=== PATIENT | male | born 1990 | race Caucasian/White ===

== ENCOUNTER 2016-12-27 19:18 | Emergency (ER) | payer BC ==
[2016-12-27] MEDS ORDERED: Tetan/Diph/Pertus SYR(Tdap)* 0.5 ML SYR(BOOSTRIX) use SYR IM ONE (20:01)
[2016-12-27] MEDS ORDERED: Amoxicillin/Clavulanate TAB* 875 MG PO ONE (20:01)
--- NOTE | 2016-12-27 20:01 | ED ---
Laceration/Wound HPI - HPI Summary HPI Summary: 26M presents with laceration of right sole of foot 30 minutes ago. He was walking bare foot across yard and cut it on something. He denies any foreign body. He was able to ambulate on it. He denies any numbness or tingling. He does not know when his last tetanus was. - History of Current Complaint Stated Complaint: FOOT LAC Time Seen by Provider: 12/27/16 19:30 Pain Intensity: 2 - Allergy/Home Medications Allergies/Adverse Reactions: Allergies Allergy/AdvReac Type Severity Reaction Status Date / Time No Known Allergies Allergy Verified 12/27/16 19:22 PMH/Surg Hx/FS Hx/Imm Hx Endocrine/Hematology History: Denies: Hx Anticoagulant Therapy Cardiovascular History: Denies: Hx Hypertension - Immunization History Date of Tetanus Vaccine: 2008 Infectious Disease History: No Infectious Disease History: Denies: Traveled Outside the in Last 30 Days - Family History Known Family History: Positive: Hypertension - Social History Alcohol Use: Occasionally Substance Use Type: Reports: None Smoking Status (MU): Never Smoked Tobacco Review of Systems Negative: Fever Negative: Chest Pain Negative: Shortness Of Breath Positive: Other - laceration right foot All Other Systems Reviewed And Are Negative: Yes Physical Exam Triage Information Reviewed: Yes Vital Signs On Initial Exam: Initial Vitals Temp Pulse Resp BP Pulse Ox 98.3 F 58 16 148/66 100 12/27/16 19:21 12/27/16 19:21 12/27/16 19:21 12/27/16 19:21 12/27/16 19:21 Vital Signs Reviewed: Yes Appearance: Positive: Well-Appearing Skin: Positive: Warm, Dry, Other - 2cm superficial on arch of right foot Head/Face: Positive: Normal Head/Face Inspection Eyes: Positive: Normal, Conjunctiva Clear Respiratory/Lung Sounds: Positive: Clear to Auscultation, Breath Sounds Present Cardiovascular: Positive: Normal, RRR Musculoskeletal: Positive: Strength/ROM Intact - right foot, Other - good pulses , capillary refill<2 secs, Procedures - Laceration/Wound Repair 2 Location: Other - right sole of foot Description: Linear Length, Depth and Shape: 2cm superficial Irrigated w/ Saline (ccs): 500 Closure: Skin Adhesive, SteriStrips Diagnostics - Vital Signs Vital Signs Temp Pulse Resp BP Pulse Ox 12/27/16 19:21 98.3 F 58 16 148/66 100 - Laboratory Lab Statement: Any lab studies that have been ordered have been reviewed, and results considered in the medical decision making process. Laceration Repair Course/Dx - Course Course Of Treatment: 26M presents with laceration of right sole of foot 30 minutes ago. He was walking bare foot across yard and cut it on something. He denies any foreign body. He was able to ambulate on it. He denies any numbness or tingling. He does not know when his last tetanus was. has 2cm laceration on arch of right foot that is superificial. discussed sutures vs glue and patient wants glue. placed glue and steristrips after extensive irrigation. even though did not go through shoe placed on augmentin to ppx for infection. gave tetanus. patient understands and agrees with plan. - Differential Dx Differental Diagnoses: Abrasion, Avulsion, Laceration - Clinical Impression Provider Diagnoses: Laceration of right foot Discharge - Discharge Plan Condition: Good Disposition: HOME Prescriptions: Amoxicillin/Clavulanate TAB* [Augmentin TAB 875*] 875 mg PO BID #9 tab Patient Education Materials: Skin [facility]hesive [facility] (ED) Referrals: Torres Olmstead DO [Primary Care Provider] - Additional Instructions: Take antibiotic twice a day for 5 days, first dose given in ED Place ice on area as needed Keep as dry as possible Take Tylenol or ibuprofen for pain as needed every 6 hours Glue and steristrips will fall off on own Use sunscreen on area after laceration has healed Return to ED if develop any signs of infection or any new or worsening symptoms
[2016-12-27 20:35] VITALS: BP 106/79
== END 2016-12-27 21:16 | disposition home or self-care (01) ==
LOC: ED 19:18
DX: S91.311A Laceration without foreign body, right foot, initial encounter (principal); Y28.9XXA Contact with unspecified sharp object, undetermined intent, initial encounter; Y92.096 Garden or yard of other non-institutional residence as the place of occurrence of the external cause
CPT/HCPCS: 90715; 99282; A9270-GY